=== PATIENT | male | born 1965 | race Caucasian/White ===

== ENCOUNTER → 2020-11-17 | Outpatient (CLI) | payer OTHER | LOC: EXRD 13:58 | DX: M25.50 Pain in unspecified joint (principal); M19.072 Primary osteoarthritis, left ankle and foot; M19.071 Primary osteoarthritis, right ankle and foot; R79.82 Elevated C-reactive protein (CRP); I87.8 Other specified disorders of veins | CPT/HCPCS: 73630 ==